=== PATIENT | male | born 1990 | race Two or more races ===

== ENCOUNTER 2024-02-22 07:37 | Emergency (ER) | payer OTHER ==
[~2024-02-22] VITALS: Ht 185.4 cm; Wt 93.0 kg
[2024-02-22 07:43] VITALS: O2SAT 97
[2024-02-22] MEDS ORDERED: TDAP DIPH,PERTUSS,TET VAC/PF 0.5 ML DISP.SYRIN IM ONE (08:07)
[2024-02-22] MEDS: TDAP DIPH,PERTUSS,TET VAC/PF 0.5 ML DISP.SYRIN IM ONE (08:08)
== END 2024-02-22 08:19 | disposition home or self-care (01) ==
LOC: ER 07:37
DX: S01.21XA Laceration without foreign body of nose, initial encounter (principal); Z60.2 Problems related to living alone; W20.8XXA Other cause of strike by thrown, projected or falling object, initial encounter; Y93.89 Activity, other specified; Y92.89 Other specified places as the place of occurrence of the external cause; Y99.8 Other external cause status
CPT/HCPCS: 90715; A4606; A4663